=== PATIENT | female | born 1975 | race Caucasian/White ===

== ENCOUNTER 2017-02-19 23:09 | Emergency (ER) | payer BC ==
[2017-02-19 22:58] LABS: BASOPHIL# 0.1 X10e3 (0-0.3); BASOPHIL% 1.1 % (0-2.5); EOSINOPHIL# 0.3 X10e3 (0-0.7); EOSINOPHIL% 2.2 % (0.0-7.0); HEMATOCRIT 41.2 % (35.0-45.0); HEMOGLOBIN 13.7 gm/dL (12.0-16.0); LYMPHOCYTE# 4.2 X10e3 (1.0-3.5); MEAN CELL VOLUME 88.9 FL (83-96); MEAN CORPUSCULAR HEMOGLOBIN 29.6 PG (28-34); MEAN CORPUSCULAR HGB CONC 33.3 g/dL (30-36); MEAN PLATELET VOLUME 8.6 FL (6.5-11.5); MONOCYTE# 0.8 X10e3 (0-1.0); MONOCYTE% 6.4 % (3.0-12.0); NEUTROPHIL# 6.7 X10e3 (1.5-7.1); NEUTROPHIL% 55.3 % (40-75); PLATELET COUNT 284 X10e3 (140-420); RED BLOOD COUNT 4.64 X10e (3.90-5.30); RED CELL DISTRIBUTION WIDTH 13.8 % (11.0-15.5); WHITE BLOOD COUNT 12.1 X10e3 (4.0-10.5)
[2017-02-19 23:00] LABS: DIFF IND NO
[~2017-02-19 23:09] MED LIST: ACETAMINOPHEN PO; ALBUTEROL17 GM INH; ALPRAZOLAM; AMBIEN; AMBIEN10 MG PO; AMOXICILLIN PO; BACLOFEN20 M1 PO; CLIMARA1 PATCH.WK TOP; CLONIDINE PO; CVS PHARMACY; DESYREL100 MG; DESYREL100 MG PO; DURAGESIC25 MCG EXT; ESTRACE PO; ESTRACE0.5 MG; ESTRACE2 MG PO; ESTRADIOL1 MG PO; FIORICET 50-321 EACH PO; FLEXERIL; GYNODIOL2 MG PO; HYDROCODON-ACE1 EAC5 PO; IBUPROFEN; K-DUR20 ME1 PO; KEPPRA1000 MG PO; KEPPRA500 M1 PO; KEPPRA500 M2; KEPPRA500 M2 PO; KEPPRA750 MG PO; KETOPROFEN; KETOPROFEN PO; LEVAQUIN PO; LORTAB 10/500 T1 TAB; LORTAB 7.5-5001 TAB PO; LORTAB ELIXIR480 ML PO; LYRICA PO; MACROBID100 MG PO; MOTRIN400 MG PO; NICOTINE TRANSD14 MG EXT; NORCO 7.5/325 T1 TAB PO; ORUDIS75 M1 PO; PERCOCET10 PO; PERCOCET7.5 PO; PHENERGAN; PHENERGAN PO; PHENERGAN12.5 MG/0. PO; PREDNISONE PO; PREVACID PO; ROBITUSSIN-DM120 ML PO; SEROQUEL PO; TEGRETOL PO; TEGRETOL100 MG; TRAZODONE HCL100 MG PO; TRAZODONE HCL150 MG PO; VICODIN 5/500 T1 TAB; VICODIN PO; VITAMIN B-1000 MCG/1 INJ; VITAMIN D2000 UNIT PO; VITAMIN D250000 UNIT PO; VOLTAREN50 MG PO; VOLTAREN75 MG PO; XANAX0.5 M1; XANAX2 MG PO; ZOFRAN8 MG PO
[2017-02-19 23:22] LABS: ALBUMIN SERUM 4.3 g/dL (3.5-5.0); BILIRUBIN,TOTAL 0.8 mg/dL (0.2-2.0); BUN/CREATININE RATIO 7.5; CALCIUM SERUM 9.4 mg/dL (8.4-10.2); CREATININE SERUM 0.8 mg/dL (0.6-1.4); GLOM FILT RATE Estimated 91.7 mL/min (>60); POTASSIUM 3.2 mmol/L (3.5-5.1); PROTEIN TOTAL SERUM 7.3 g/dL (6.0-8.3)
== END 2017-02-20 00:02 | disposition home or self-care (01) ==
LOC: CED 23:09
PROVIDERS: Physician Assistant
DX: G40.802 Other epilepsy, not intractable, without status epilepticus (principal); F17.210 Nicotine dependence, cigarettes, uncomplicated; D64.9 Anemia, unspecified; F41.9 Anxiety disorder, unspecified; Z88.8 Allergy status to other drugs, medicaments and biological substances; Z79.899 Other long term (current) drug therapy
CPT/HCPCS: 80053; 85025; 96361; 96374; 96375; 96376; 99284; J2060; J2405

== ENCOUNTER 2017-02-20 10:43 | Emergency (ER) | payer BC ==
--- NOTE | ~2017-02-20 | CR2 ---
[facility] A Service of [facility] RADIOLOGY TEXT RESULTS PATIENT: MARU RACHEL LOCATION: [facility] : 77 UNIT #: [id number] AGE: [address]: Florentin Winters MD SEX: F ORDER DR: [id number] [facility] [address] [place], [place] [address] [id number] E MR#: [id number] #: [id number] NAME: MARU RACHEL : 1975 SEX: F STUDY DATE/TIME: 02/20/2017 10:57 UNIT: [facility] ROOM: STUDY DESCRIPTION: CR Abdomen Acute Series Attending Physician: Vinny Winters M.D. Ordering Physician: Ethan Welsh M.D. Primary Care Physician: Komal Devlin M.D. MEDICAL IMAGING REPORT This report is preliminary unless electronic signature is present EXAM Acute abdomen series 02/20/2017 INDICATION Vomiting, nausea, shortness for a couple days. COMPARISON 10/08/2016. FINDINGS A PA view of the chest and flat and upright views of the abdomen were obtained. The heart size and vascularity are normal. The lungs are clear. The bowel gas pattern is normal. There are clips in the gallbladder fossa. The bones are normal. There is no free air. IMPRESSION Normal acute abdomen series. Dictated by... Anil Marin M.D. THIS IS AN ELECTRONICALLY VERIFIED REPORT Anil Marin M.D. at 02/20/2017 1:53 PM JENNY/jordan TD: 02/20/2017 13:47 JOB #: [id number] MEDICAL IMAGING REPORT Page 1 of 1 COPY
[2017-02-20 10:52] LABS: BASOPHIL# 0.1 X10e3 (0-0.3); BASOPHIL% 0.8 % (0-2.5); EOSINOPHIL% 0.3 % (0.0-7.0); HEMATOCRIT 39.8 % (35.0-45.0); HEMOGLOBIN 13.3 gm/dL (12.0-16.0); LYMPHOCYTE# 2.6 X10e3 (1.0-3.5); LYMPHOCYTE% 19.2 % (17.0-45.0); MEAN CELL VOLUME 88.8 FL (83-96); MEAN CORPUSCULAR HEMOGLOBIN 29.8 PG (28-34); MEAN CORPUSCULAR HGB CONC 33.5 g/dL (30-36); MEAN PLATELET VOLUME 8.9 FL (6.5-11.5); MONOCYTE# 0.8 X10e3 (0-1.0); NEUTROPHIL# 9.8 X10e3 (1.5-7.1); NEUTROPHIL% 73.7 % (40-75); PLATELET COUNT 272 X10e3 (140-420); RED BLOOD COUNT 4.48 X10e (3.90-5.30); RED CELL DISTRIBUTION WIDTH 13.9 % (11.0-15.5); WHITE BLOOD COUNT 13.4 X10e3 (4.0-10.5)
[2017-02-20 10:56] LABS: DIFF IND NO
[2017-02-20 11:31] LABS: ALBUMIN SERUM 4.1 g/dL (3.5-5.0); BILIRUBIN, DIRECT 0.1 mg/dL (0.0-0.2); BILIRUBIN,INDIRECT 0.9 mg/dL (0.0-0.9); BUN/CREATININE RATIO 7.14; CALCIUM SERUM 9.3 mg/dL (8.4-10.2); CREATININE SERUM 0.7 mg/dL (0.6-1.4); GLOM FILT RATE Estimated 107.6 mL/min (>60); POTASSIUM 3.2 mmol/L (3.5-5.1); PROTEIN TOTAL SERUM 7.1 g/dL (6.0-8.3)
[2017-02-20 12:19] LABS: URINE SOURCE CLEAN CATCH
[2017-02-20 12:24] LABS: URINE APPEARANCE CLEAR; URINE BILIRUBIN NEG (NEG); URINE BLOOD TRACE (NEG); URINE COLOR DK YELLOW; URINE GLUCOSE NEG (NEG); URINE KETONE TRACE (NEG); URINE LEUKOCYTE ESTERASE TRACE (NEG); URINE NITRATE NEG (NEG); URINE PH 8.5 (5-8); URINE PROTEIN TRACE (NEG); URINE SPECIFIC GRAVITY 1.025 (1.003-1.035)
[2017-02-20 12:27] LABS: CULTURE INDICATED? YES; URINE BACTERIA AUWI 2+ (NEGATIVE); URINE SQUAMOUS EPITHELIAL CELL MOD /[HPF]
[2017-02-20 12:43] LABS: U HYALINE CASTS AUWI 0-2 /[LPF]
[2017-02-20 12:44] LABS: URINE MUCUS PRESENT
== END 2017-02-20 15:45 | disposition home or self-care (01) ==
LOC: CED 10:43
PROVIDERS: Emergency Medicine
DX: E87.6 Hypokalemia (principal); R11.10 Vomiting, unspecified; R19.7 Diarrhea, unspecified; F41.9 Anxiety disorder, unspecified; F17.210 Nicotine dependence, cigarettes, uncomplicated; Z90.49 Acquired absence of other specified parts of digestive tract; Z90.710 Acquired absence of both cervix and uterus
CPT/HCPCS: 36415; 51701; 74022; 80048; 80076; 81003; 83690; 84703; 85025; 87086; 96374; 99283; 99284; J2765

== ENCOUNTER 2017-02-20 22:39 | Emergency (ER) | payer BC | END 2017-02-21 01:18 | disposition home or self-care (01) | LOC: CED 22:39 | DX: G40.909 Epilepsy, unspecified, not intractable, without status epilepticus (principal); F41.9 Anxiety disorder, unspecified; F17.200 Nicotine dependence, unspecified, uncomplicated; F19.939 Other psychoactive substance use, unspecified with withdrawal, unspecified; Z88.5 Allergy status to narcotic agent; Z88.8 Allergy status to other drugs, medicaments and biological substances; Z79.899 Other long term (current) drug therapy; Z88.6 Allergy status to analgesic agent | CPT/HCPCS: 36415; 96361; 96374; 96375; 99284; J1953; J2060; J2405 ==

== ENCOUNTER 2017-02-22 04:48 | Emergency (ER) | payer BC ==
[2017-02-22 04:40] LABS: BASOPHIL# 0.1 X10e3 (0-0.3); EOSINOPHIL# 0.2 X10e3 (0-0.7); HEMATOCRIT 39.5 % (35.0-45.0); HEMOGLOBIN 13.1 gm/dL (12.0-16.0); LYMPHOCYTE# 2.6 X10e3 (1.0-3.5); MEAN CELL VOLUME 89.6 FL (83-96); MEAN CORPUSCULAR HEMOGLOBIN 29.7 PG (28-34); MEAN CORPUSCULAR HGB CONC 33.2 g/dL (30-36); MEAN PLATELET VOLUME 8.5 FL (6.5-11.5); MONOCYTE# 1.2 X10e3 (0-1.0); MONOCYTE% 10.2 % (3.0-12.0); NEUTROPHIL# 7.7 X10e3 (1.5-7.1); NEUTROPHIL% 64.8 % (40-75); PLATELET COUNT 233 X10e3 (140-420); RED BLOOD COUNT 4.41 X10e (3.90-5.30); WHITE BLOOD COUNT 11.8 X10e3 (4.0-10.5)
[2017-02-22 04:43] LABS: DIFF IND NO
[2017-02-22 05:02] LABS: AMPHETAMINE NEG (NEG); BARBITURATES NEG (NEG); BENZODIAZEPINES POS (NEG); COCAINE NEG (NEG); MARIJUANA NEG (NEG); OPIATES POS (NEG); TRICYCLIC ANTIDEPRESSANTS NEG (NEG); U METHADONE NEG (NEG)
[2017-02-22 05:15] LABS: ALCOHOL BLOOD <5 mg/dL (0); BLOOD UREA NITROGEN <5 mg/dL (9-23); BUN/CREATININE RATIO 7.14; CALCIUM SERUM 9.2 mg/dL (8.4-10.2); CARBON DIOXIDE 25 mmol/L (22-31); CHLORIDE 101 mmol/L (100-111); CREATININE SERUM 0.7 mg/dL (0.6-1.4); GLOM FILT RATE Estimated 107.6 mL/min (>60); GLUCOSE FASTING 106 mg/dL (70-110); POTASSIUM 3.1 mmol/L (3.5-5.1); SODIUM 135 mmol/L (135-145)
== END 2017-02-22 12:22 | disposition home or self-care (01) ==
LOC: CED 04:48
PROVIDERS: Emergency Medicine
DX: R56.9 Unspecified convulsions (principal); F41.9 Anxiety disorder, unspecified; F32.9 Major depressive disorder, single episode, unspecified; F17.200 Nicotine dependence, unspecified, uncomplicated
CPT/HCPCS: 36415; 80048; 80307; 82947; 85025; 99284; G0480

== ENCOUNTER 2017-02-23 10:39 | Emergency (ER) | payer BC ==
--- NOTE | ~2017-02-23 | CR72 ---
[facility] A Service of [facility] RADIOLOGY TEXT RESULTS PATIENT: MARU RACHEL LOCATION: [facility] : 77 UNIT #: [id number] AGE: [address]: Zackary Higgins MD SEX: F ORDER DR: [id number] [facility] [address] [place], [place] [address] [id number] E MR#: [id number] Acc #: [id number] NAME: MARU RACHEL : 1975 SEX: F STUDY DATE/TIME: 02/23/2017 10:55 UNIT: [facility] ROOM: STUDY DESCRIPTION: CR Chest Single View Portable Attending Physician: Zackary Higgins M.D. Ordering Physician: Zackary Higgins M.D. Primary Care Physician: Komal Devlin M.D. MEDICAL IMAGING REPORT This report is preliminary unless electronic signature is present EXAM Single view chest dated 02/23/2017 COMPARISON Frontal view of the chest from acute abdominal series dated 02/20/2017. HISTORY Seizures, shortness of air and altered mental status since yesterday. FINDINGS Single view of the chest was obtained. A single AP portable view of the chest shows both lungs to be clear. The heart is normal in size. The mediastinal contour is normal. No significant bone abnormalities are seen. IMPRESSION Normal portable chest. Dictated by... Oh Melgar M.D. THIS IS AN ELECTRONICALLY VERIFIED REPORT Oh Melgar M.D. at 02/24/2017 3:20 PM CPR/jw TD: 02/23/2017 13:28 JOB #: [id number] MEDICAL IMAGING REPORT Page 1 of 1 COPY
[2017-02-23 10:53] LABS: URINE SOURCE CATH
[2017-02-23 10:58] LABS: URINE APPEARANCE CLEAR; URINE BILIRUBIN NEG (NEG); URINE BLOOD TRACE (NEG); URINE COLOR YELLOW; URINE GLUCOSE NEG (NEG); URINE KETONE NEG (NEG); URINE LEUKOCYTE ESTERASE NEG (NEG); URINE NITRATE NEG (NEG); URINE PROTEIN NEG (NEG); URINE SPECIFIC GRAVITY 1.004 (1.003-1.035); URINE UROBILINOGEN 0.2 MG/DL (NEG)
[2017-02-23 11:01] LABS: U HYALINE CASTS AUWI 0-2 /[LPF]; URBCS1 AUWI 0-2 /[HPF] (0-2); URINE BACTERIA AUWI NEG (NEGATIVE); URINE SQUAMOUS EPITHELIAL CELL OCC /[HPF]; UWBCS1 AUWI 0-2 (0-5)
[2017-02-23 11:09] LABS: CULTURE INDICATED? NO
[2017-02-23 11:19] LABS: AMPHETAMINE NEG (NEG); BARBITURATES NEG (NEG); BENZODIAZEPINES NEG (NEG); COCAINE NEG (NEG); MARIJUANA NEG (NEG); OPIATES NEG (NEG); TRICYCLIC ANTIDEPRESSANTS NEG (NEG); U METHADONE NEG (NEG)
[2017-02-23 11:24] LABS: BASOPHIL# 0.1 X10e3 (0-0.3); BASOPHIL% 0.8 % (0-2.5); EOSINOPHIL# 0.1 X10e3 (0-0.7); EOSINOPHIL% 0.7 % (0.0-7.0); HEMATOCRIT 41.9 % (35.0-45.0); HEMOGLOBIN 13.9 gm/dL (12.0-16.0); LYMPHOCYTE# 2.5 X10e3 (1.0-3.5); LYMPHOCYTE% 18.4 % (17.0-45.0); MEAN CELL VOLUME 89.5 FL (83-96); MEAN CORPUSCULAR HEMOGLOBIN 29.6 PG (28-34); MEAN CORPUSCULAR HGB CONC 33.1 g/dL (30-36); MONOCYTE# 1.1 X10e3 (0-1.0); NEUTROPHIL# 9.8 X10e3 (1.5-7.1); NEUTROPHIL% 72.1 % (40-75); PLATELET COUNT 280 X10e3 (140-420); RED BLOOD COUNT 4.68 X10e (3.90-5.30); RED CELL DISTRIBUTION WIDTH 14.1 % (11.0-15.5); WHITE BLOOD COUNT 13.5 X10e3 (4.0-10.5)
[2017-02-23 11:26] LABS: DIFF IND NO
[2017-02-23 11:49] LABS: ALBUMIN SERUM 4.6 g/dL (3.5-5.0); ALKALINE PHOSPHATASE 37 U/L (32-92); ALT (SGPT) 55 U/L (10-40); AST (SGOT) 136 U/L (10-42); BILIRUBIN, DIRECT 0.2 mg/dL (0.0-0.2); BILIRUBIN,INDIRECT 0.8 mg/dL (0.0-0.9); BLOOD UREA NITROGEN 5 mg/dL (9-23); BUN/CREATININE RATIO 7.14; CALCIUM SERUM 9.6 mg/dL (8.4-10.2); CARBON DIOXIDE 26 mmol/L (22-31); CHLORIDE 100 mmol/L (100-111); CREATININE SERUM 0.7 mg/dL (0.6-1.4); GLOM FILT RATE Estimated 107.6 mL/min (>60); GLUCOSE FASTING 108 mg/dL (70-110); POTASSIUM 3.3 mmol/L (3.5-5.1); PROTEIN TOTAL SERUM 7.5 g/dL (6.0-8.3); SALICYLATE <4.0 mg/dL; SODIUM 136 mmol/L (135-145)
[2017-02-23 11:50] LABS: ACETAMINOPHEN <10 ug/mL; ALCOHOL BLOOD <5 mg/dL (0)
== END 2017-02-23 12:16 | disposition left against medical advice (07) ==
LOC: CED 10:39
PROVIDERS: Emergency Medicine
DX: G40.802 Other epilepsy, not intractable, without status epilepticus (principal); F13.20 Sedative, hypnotic or anxiolytic dependence, uncomplicated; F17.200 Nicotine dependence, unspecified, uncomplicated; Z79.899 Other long term (current) drug therapy; Z88.8 Allergy status to other drugs, medicaments and biological substances
CPT/HCPCS: 36415; 51701; 71010; 80048; 80076; 80307; 81003; 82140; 82947; 83605; 85025; 99284; G0480; J2405

== ENCOUNTER 2017-02-25 18:43 | Inpatient (IN) | payer BC ==
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
--- NOTE | ~2017-02-25 | CT71 ---
[facility] A Service of [facility] RADIOLOGY TEXT RESULTS PATIENT: MARU RACHEL LOCATION: [facility] 575-01 : [birth year] UNIT #: [id number] AGE: [address]: Eliana Graham MD SEX: F ORDER DR: [id number] [facility] [address] [place], [place] [address] [id number] E MR#: [id number] Acc #: [id number] NAME: MARU RACHEL : 1975 SEX: F STUDY DATE/TIME: 02/25/2017 20:56 UNIT: [facility] ROOM: STUDY DESCRIPTION: CT Head Wo Contrast Attending Physician: Sussy Zamora M.D. Referring Physician: Komal Devlin M.D. Ordering Physician: Sussy Zamora M.D. Primary Care Physician: Komal Devlin M.D. MEDICAL IMAGING REPORT This report is preliminary unless electronic signature is present EXAM Head CT without contrast, 02/25/2017 HISTORY Headache, fidgety and restless with body-wide pain after withdrawal from Xanax today. FINDINGS This CT exam was performed with one or more of the following radiation dose reduction techniques: Automatic exposure control, adjustment of mA and/or kV according to patient size, and iterative reconstruction. Multiple axial images were obtained from the skull base to vertex without intravenous contrast administration. Examination is nondiagnostic due to patient motion with resulting artifact. Repeat examination is strongly recommended. IMPRESSION Examination is nondiagnostic due to patient motion with resulting artifact. Repeat examination is strongly recommended. Dictated by... Rebel Sarmiento M.D. THIS IS AN ELECTRONICALLY VERIFIED REPORT Rebel Sarmiento M.D. at 02/26/2017 2:15 PM CAMERON/sowmya TD: 02/25/2017 23:18 JOB #: [id number] [facility] A Service [facility] RADIOLOGY TEXT RESULTS PATIENT: MARU RACHEL LOCATION: [facility] 575-01 : [birth year] UNIT #: [id number] AGE: [address]: Eliana Graham MD SEX: F ORDER DR: MEDICAL IMAGING REPORT Page 1 of 1 COPY
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
--- NOTE | ~2017-02-25 | CT71 ---
[facility] A Service of [facility] RADIOLOGY TEXT RESULTS PATIENT: MARU RACHEL LOCATION: [facility] 575-01 : [birth year] UNIT #: [id number] AGE: [address]: Eliana Graham MD SEX: F ORDER DR: [id number] [facility] [address] [place], [place] [address] [id number] I MR#: [id number] Acc #: [id number] NAME: MARU RACHEL : 1975 SEX: F STUDY DATE/TIME: 02/25/2017 23:18 UNIT: [facility] ROOM: [facility] STUDY DESCRIPTION: CT Head Wo Contrast Attending Physician: Nikkie Mcadams M.D. Referring Physician: Komal Devlin M.D. Ordering Physician: Sussy Zamora M.D. Primary Care Physician: Komal Devlin M.D. MEDICAL IMAGING REPORT This report is preliminary unless electronic signature is present EXAM Noncontrast CT head at 23:18. DATE 02/25/2017 HISTORY 42-year-old female with diffuse body pain, withdrawal from Xanax today. Additional history of pseudo seizures, anemia. COMPARISON Noncontrast CT head 02/25/2017 at 20:[address] exam was performed with one or more of the following radiation dose reduction techniques: Automatic exposure control, adjustment of mA and/or kV according to patient size, and iterative reconstruction. The study is degraded by patient motion, necessitating repeated attempts at imaging. No acute intracranial hemorrhage, mass lesion, mass effect, midline shift or evidence of acute or evolving infarct. Mild ethmoid sinus mucosal thickening. Mastoid air cells are clear. No displaced calvarial fractures identified. IMPRESSION 1. No acute intracranial findings. Dictated by... Gracie Garcia M.D. THIS IS AN ELECTRONICALLY VERIFIED REPORT Gracie Garcia M.D. at 02/26/2017 10:07 PM [facility] A Service of [facility] RADIOLOGY TEXT RESULTS PATIENT: MARU RACHEL LOCATION: [facility] 575-01 : [birth year] UNIT #: [id number] AGE: [address]: Eliana Graham MD SEX: F ORDER DR: CRUZ/sowmya TD: 02/26/2017 03:34 JOB #: [id number] MEDICAL IMAGING REPORT Page 1 of 1 COPY
[2017-02-25 18:16] LABS: URINE SOURCE CLEAN CATCH
[2017-02-25 18:24] LABS: URINE APPEARANCE CLOUDY; URINE BILIRUBIN NEG (NEG); URINE BLOOD NEG (NEG); URINE COLOR YELLOW; URINE GLUCOSE NEG (NEG); URINE KETONE NEG (NEG); URINE LEUKOCYTE ESTERASE TRACE (NEG); URINE NITRATE NEG (NEG); URINE PH 5.5 (5-8); URINE PROTEIN NEG (NEG); URINE SPECIFIC GRAVITY 1.005 (1.003-1.035); URINE UROBILINOGEN 0.2 MG/DL (NEG)
[2017-02-25 18:27] LABS: CULTURE INDICATED? YES; URBCS1 AUWI 0-2 /[HPF] (0-2); URINE BACTERIA AUWI 2+ (NEGATIVE); URINE SQUAMOUS EPITHELIAL CELL MOD /[HPF]
[2017-02-25 18:40] LABS: AMPHETAMINE NEG (NEG); BARBITURATES NEG (NEG); BENZODIAZEPINES NEG (NEG); COCAINE NEG (NEG); MARIJUANA NEG (NEG); OPIATES POS (NEG); TRICYCLIC ANTIDEPRESSANTS NEG (NEG); U METHADONE NEG (NEG)
[2017-02-25 18:46] LABS: BASOPHIL# 0.1 X10e3 (0-0.3); EOSINOPHIL# 0.4 X10e3 (0-0.7); EOSINOPHIL% 3.3 % (0.0-7.0); HEMATOCRIT 41.6 % (35.0-45.0); HEMOGLOBIN 13.9 gm/dL (12.0-16.0); LYMPHOCYTE# 4.3 X10e3 (1.0-3.5); LYMPHOCYTE% 40.1 % (17.0-45.0); MEAN CELL VOLUME 89.7 FL (83-96); MEAN CORPUSCULAR HEMOGLOBIN 30.1 PG (28-34); MEAN CORPUSCULAR HGB CONC 33.5 g/dL (30-36); MEAN PLATELET VOLUME 8.5 FL (6.5-11.5); MONOCYTE% 9.4 % (3.0-12.0); NEUTROPHIL% 46.2 % (40-75); PLATELET COUNT 291 X10e3 (140-420); RED BLOOD COUNT 4.64 X10e (3.90-5.30); RED CELL DISTRIBUTION WIDTH 14.2 % (11.0-15.5); WHITE BLOOD COUNT 10.8 X10e3 (4.0-10.5)
[2017-02-25 18:55] LABS: DIFF IND NO
[2017-02-25 19:29] LABS: ALBUMIN SERUM 4.5 g/dL (3.5-5.0); ALKALINE PHOSPHATASE 44 U/L (32-92); ALT (SGPT) 55 U/L (10-40); AST (SGOT) 55 U/L (10-42); BILIRUBIN, DIRECT 0.1 mg/dL (0.0-0.2); BILIRUBIN,INDIRECT 0.8 mg/dL (0.0-0.9); BILIRUBIN,TOTAL 0.9 mg/dL (0.2-2.0); BLOOD UREA NITROGEN <5 mg/dL (9-23); BUN/CREATININE RATIO 7.14; CALCIUM SERUM 9.1 mg/dL (8.4-10.2); CARBON DIOXIDE 27 mmol/L (22-31); CHLORIDE 94 mmol/L (100-111); CPK (CREATINE PHOSPHOKINASE) 4089 IU/L (26-140); CREATININE SERUM 0.7 mg/dL (0.6-1.4); GLOM FILT RATE Estimated 107.6 mL/min (>60); GLUCOSE FASTING 98 mg/dL (70-110); PROTEIN TOTAL SERUM 7.3 g/dL (6.0-8.3); SODIUM 133 mmol/L (135-145)
[2017-02-25 19:30] LABS: ALCOHOL BLOOD <5 mg/dL (0); POTASSIUM 2.5 mmol/L (3.5-5.1)
[2017-02-26 08:12] LABS: HEMATOCRIT 41.8 % (35.0-45.0); HEMOGLOBIN 13.6 gm/dL (12.0-16.0); MEAN CELL VOLUME 90.9 FL (83-96); MEAN CORPUSCULAR HEMOGLOBIN 29.5 PG (28-34); MEAN CORPUSCULAR HGB CONC 32.5 g/dL (30-36); MEAN PLATELET VOLUME 8.3 FL (6.5-11.5); RED BLOOD COUNT 4.61 X10e (3.90-5.30); WHITE BLOOD COUNT 6.5 X10e3 (4.0-10.5)
[2017-02-26 08:41] LABS: CALCIUM SERUM 8.9 mg/dL (8.4-10.2); CARBON DIOXIDE 26 mmol/L (22-31); CHLORIDE 104 mmol/L (100-111); CPK (CREATINE PHOSPHOKINASE) 2010 IU/L (26-140); CREATININE SERUM 0.8 mg/dL (0.6-1.4); GLOM FILT RATE Estimated 91.7 mL/min (>60); GLUCOSE FASTING 104 mg/dL (70-110); MAGNESIUM 1.8 mg/dL (1.6-3.0); POTASSIUM 3.1 mmol/L (3.5-5.1); SODIUM 138 mmol/L (135-145)
[2017-02-26 08:42] LABS: BLOOD UREA NITROGEN <5 mg/dL (9-23); BUN/CREATININE RATIO 6.25
[2017-02-26] MEDS ORDERED: BENTYL20 MG PO (11:40)
[2017-02-26] MEDS ORDERED: REGLAN10 MG PO (11:41)
[2017-02-26] MEDS ORDERED: VITAMIN D3 PO (11:42)
[2017-02-26] MEDS ORDERED: XANAX2 MG PO (11:43)
[2017-02-26] MEDS ORDERED: AMBIEN10 MG PO (11:44)
[2017-02-26] MEDS ORDERED: ZANAFLEX4 M1 PO (11:44)
[2017-02-27] MEDS ORDERED: NEURONTIN300 MG PO (14:03)
[2017-02-27] MEDS ORDERED: HYDRALAZINE HCL25 MG PO (14:03)
[2017-02-27] MEDS ORDERED: METOPROLOL TAR25 MG PO (14:05)
[2017-02-27] MEDS ORDERED: NICOTINE PATCH TD (14:08)
== END 2017-02-27 16:01 | disposition home or self-care (01) | DRG 918 ==
LOC: CED 18:43 → CEDOF 02-26 00:15 → C5C 02-26 02:26
PROVIDERS: Emergency Medicine; Internal Medicine
DX: T42.4X1A Poisoning by benzodiazepines, accidental (unintentional), initial encounter (principal); R56.9 Unspecified convulsions; M62.82 Rhabdomyolysis; F33.2 Major depressive disorder, recurrent severe without psychotic features; F13.230 Sedative, hypnotic or anxiolytic dependence with withdrawal, uncomplicated; I16.9 Hypertensive crisis, unspecified; Y92.009 Unspecified place in unspecified non-institutional (private) residence as the place of occurrence of the external cause; F41.9 Anxiety disorder, unspecified; E87.6 Hypokalemia; G89.29 Other chronic pain; M54.9 Dorsalgia, unspecified; E53.8 Deficiency of other specified B group vitamins; Z90.49 Acquired absence of other specified parts of digestive tract; Z88.6 Allergy status to analgesic agent; Z88.5 Allergy status to narcotic agent; Z88.8 Allergy status to other drugs, medicaments and biological substances
CPT/HCPCS: 70450; 80048; 80076; 80307; 81003; 82274; 82550; 83735; 85025; 85027; 87086; 99285; G0480; J1200; J1630; J2060; J2405

== ENCOUNTER 2017-02-28 16:07 | Emergency (ER) | payer BC ==
[~2017-02-28 16:07] MED LIST changes: +BENTYL20 MG PO; +HYDRALAZINE HCL25 MG PO; +METOPROLOL TAR25 MG PO; +NEURONTIN300 MG PO; +NICOTINE PATCH TD; +REGLAN10 MG PO; +VITAMIN D3 PO; +ZANAFLEX4 M1 PO
[2017-02-28 16:18] LABS: BASOPHIL# 0.1 X10e3 (0-0.3); BASOPHIL% 1.1 % (0-2.5); EOSINOPHIL# 0.2 X10e3 (0-0.7); EOSINOPHIL% 2.3 % (0.0-7.0); HEMATOCRIT 42.2 % (35.0-45.0); LYMPHOCYTE# 2.6 X10e3 (1.0-3.5); LYMPHOCYTE% 26.3 % (17.0-45.0); MEAN CELL VOLUME 91.3 FL (83-96); MEAN CORPUSCULAR HEMOGLOBIN 30.1 PG (28-34); MEAN PLATELET VOLUME 8.7 FL (6.5-11.5); MONOCYTE# 0.8 X10e3 (0-1.0); MONOCYTE% 7.9 % (3.0-12.0); NEUTROPHIL# 6.1 X10e3 (1.5-7.1); NEUTROPHIL% 62.4 % (40-75); PLATELET COUNT 320 X10e3 (140-420); RED BLOOD COUNT 4.63 X10e (3.90-5.30); RED CELL DISTRIBUTION WIDTH 14.7 % (11.0-15.5); WHITE BLOOD COUNT 9.7 X10e3 (4.0-10.5)
[2017-02-28 16:19] LABS: DIFF IND NO
[2017-02-28 16:44] LABS: ALBUMIN SERUM 4.3 g/dL (3.5-5.0); ALCOHOL BLOOD <5 mg/dL (0); ALKALINE PHOSPHATASE 40 U/L (32-92); ALT (SGPT) 28 U/L (10-40); AST (SGOT) 15 U/L (10-42); BILIRUBIN, DIRECT 0.1 mg/dL (0.0-0.2); BILIRUBIN,INDIRECT 0.8 mg/dL (0.0-0.9); BILIRUBIN,TOTAL 0.9 mg/dL (0.2-2.0); BLOOD UREA NITROGEN 6 mg/dL (9-23); BUN/CREATININE RATIO 8.57; CALCIUM SERUM 9.4 mg/dL (8.4-10.2); CARBON DIOXIDE 24 mmol/L (22-31); CHLORIDE 103 mmol/L (100-111); CPK (CREATINE PHOSPHOKINASE) 252 IU/L (26-140); CREATININE SERUM 0.7 mg/dL (0.6-1.4); GLOM FILT RATE Estimated 107.6 mL/min (>60); GLUCOSE FASTING 95 mg/dL (70-110); POTASSIUM 3.2 mmol/L (3.5-5.1); PROTEIN TOTAL SERUM 7.2 g/dL (6.0-8.3); SODIUM 136 mmol/L (135-145)
[2017-02-28 17:35] LABS: URINE SOURCE CLEAN CATCH
[2017-02-28 17:43] LABS: URINE APPEARANCE CLEAR; URINE BILIRUBIN NEG (NEG); URINE BLOOD NEG (NEG); URINE COLOR YELLOW; URINE GLUCOSE NEG (NEG); URINE KETONE NEG (NEG); URINE LEUKOCYTE ESTERASE NEG (NEG); URINE NITRATE NEG (NEG); URINE PH 5.5 (5-8); URINE PROTEIN NEG (NEG); URINE SPECIFIC GRAVITY 1.006 (1.003-1.035); URINE UROBILINOGEN 0.2 MG/DL (NEG)
[2017-02-28 17:45] LABS: CULTURE INDICATED? NO
[2017-02-28 18:07] LABS: AMPHETAMINE NEG (NEG); BARBITURATES NEG (NEG); BENZODIAZEPINES POS (NEG); COCAINE NEG (NEG); MARIJUANA NEG (NEG); OPIATES NEG (NEG); TRICYCLIC ANTIDEPRESSANTS NEG (NEG); U METHADONE NEG (NEG)
== END 2017-02-28 18:44 | disposition home or self-care (01) ==
LOC: CED 16:07
PROVIDERS: Student in an Organized Health Care Education/Training Program
DX: F41.9 Anxiety disorder, unspecified (principal); F17.200 Nicotine dependence, unspecified, uncomplicated; F32.9 Major depressive disorder, single episode, unspecified; Z90.49 Acquired absence of other specified parts of digestive tract; Z88.5 Allergy status to narcotic agent; Z88.8 Allergy status to other drugs, medicaments and biological substances
CPT/HCPCS: 51701; 80048; 80076; 80307; 81003; 82140; 82550; 85025; 99283; G0480

== ENCOUNTER → 2017-02-28 20:24 | Emergency (ER) | payer BC ==
[~2017-02-28 20:24] MED LIST changes: +APRESOLINE PO; +ESTRACE2 M1 PO; +FOLIC ACID1 MG PO; +VITAMIN B12; +ZOFRAN ODT4 M1 PO; +ZOLOFT50 MG PO
== END | disposition left against medical advice (07) ==
LOC: CED 20:24
DX: G40.802 Other epilepsy, not intractable, without status epilepticus (principal); F32.9 Major depressive disorder, single episode, unspecified; F41.9 Anxiety disorder, unspecified; F17.210 Nicotine dependence, cigarettes, uncomplicated; Z88.5 Allergy status to narcotic agent; Z88.8 Allergy status to other drugs, medicaments and biological substances; Z79.899 Other long term (current) drug therapy
CPT/HCPCS: 99284

== ENCOUNTER 2017-04-08 01:18 | Emergency (ER) | payer BC ==
[~2017-04-08 01:18] MED LIST changes: -APRESOLINE PO; -ESTRACE2 M1 PO; -FOLIC ACID1 MG PO; -VITAMIN B12; -ZOFRAN ODT4 M1 PO; -ZOLOFT50 MG PO
== END 2017-04-08 02:30 | disposition left against medical advice (07) ==
LOC: CED 01:18
DX: Z53.21 Procedure and treatment not carried out due to patient leaving prior to being seen by health care provider (principal)

== ENCOUNTER 2017-04-30 15:24 | Observation (INO) | payer BC ==
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
--- NOTE | ~2017-04-30 | EKG ---
PATIENT: MARU RACHEL UNIT #: [id number] Ventricular Rate: 72 BPM Atrial Rate: 72 BPM P-R Interval: 214 ms QRS Duration: 94 ms Q-T Interval: 406 ms QTC Calculation(Bezet): 444 ms P [place]: 59 degrees Calculated R [place]: -3 degrees Calculated T [place]: 26 degrees Diagnosis Line: Sinus rhythm with 1st degree A-V block Diagnosis Line: Cannot rule out Inferior infarct , age Diagnosis Line: undetermined Diagnosis Line: Abnormal ECG Diagnosis Line: When compared with ECG of 24-JUL-2015 16:54, Diagnosis Line: Minimal criteria for Inferior infarct are now Diagnosis Line: Present Diagnosis Line: Confirmed by PJ ZAVALA MD ([id number]) on Diagnosis Line: 05/02/2017 7:56:41 AM INTERPRETING MD: SALLY GUPTA
--- NOTE | ~2017-04-30 | CT71 ---
[facility] A Service of [facility] RADIOLOGY TEXT RESULTS PATIENT: MARU RACHEL LOCATION: [facility] : [birth year] UNIT #: [id number] AGE: [address]: Eliana Graham MD SEX: F ORDER DR: [id number] [facility] [address]. [place], [place] [address] [id number] I MR#: [id number] Acc #: [id number] NAME: MARU RACHEL : 1975 SEX: F STUDY DATE/TIME: 04/30/2017 17:02 UNIT: [address] ROOM: [address] [place] [address] DESCRIPTION: CT Head Wo Contrast Attending Physician: Tonya Fuller M.D. Ordering Physician: Micky Khan D.O. Primary Care Physician: Nakia Iniguez MEDICAL IMAGING REPORT This report is preliminary unless electronic signature is present EXAM CT head without contrast dated 04/30/[address] head without contrast dated 02/25/2017 HISTORY Altered mental status, disorientation today. Lethargic. TECHNIQUE Axial noncontrast images were obtained from the skull base to the vertex. This CT exam was performed with one or more of the following radiation dose reduction techniques: automatic exposure control, adjustment of mA and/or kV according to patient size, and iterative reconstruction. FINDINGS Ventricular size and configuration are normal. There is no evidence of acute infarct or hemorrhage. There are no extraaxial fluid collections. No mass lesion or mass effect is seen. There are no skull fractures. Mild paranasal mucosal thickening is noted with no air fluid levels to suggest acute sinusitis. Mastoid air cells are well-aerated. Orbits of the ocular structures are unremarkable. IMPRESSION 1. No demonstrable acute intracranial abnormality. 2. Paranasal sinus mucosal thickening is seen. Dictated by... Oh Melgar M.D. THIS IS AN ELECTRONICALLY VERIFIED REPORT [facility] A Service [facility] RADIOLOGY TEXT RESULTS PATIENT: MARU RACHEL LOCATION: [facility] : [birth year] UNIT #: [id number] AGE: [address]: Eliana Graham MD SEX: F ORDER DR: Oh Melgar M.D. at 05/01/2017 3:38 PM CPR/to TD: 04/30/2017 22:11 JOB #: [id number] MEDICAL IMAGING REPORT Page 1 of 1 COPY
--- NOTE | ~2017-04-30 | CR72 ---
[facility] A Service of [facility] RADIOLOGY TEXT RESULTS PATIENT: MARU RACHEL LOCATION: [facility] 301- : [birth year] UNIT #: [id number] AGE: [address]: Tonya Fuller MD SEX: F ORDER DR: [id number] [facility] [address] [place], [place] [address] [id number] I MR#: [id number] Acc #: [id number] NAME: MARU RACHEL : 1975 SEX: F STUDY DATE/TIME: 04/30/2017 16:11 UNIT: [address] ROOM: [facility] STUDY DESCRIPTION: CR Chest Single View Portable Attending Physician: Tonya Fuller M.D. Ordering Physician: Micky Khan D.O. Primary Care Physician: Nakia Iniguez MEDICAL IMAGING REPORT This report is preliminary unless electronic signature is present EXAM Portable chest HISTORY Shortness of breath, worse with activity. Acute onset of mental status change with suspicion of overdose. TECHNIQUE Single view of the chest was obtained and compared with 02/23/2017. FINDINGS A single AP portable view of the chest shows both lungs to be clear. The heart is normal in size. The mediastinal contour is normal. No significant bone abnormalities are seen. IMPRESSION Normal portable chest. Dictated by... Shivam Velez M.D. THIS IS AN ELECTRONICALLY VERIFIED REPORT Shivam Velez M.D. at 05/01/2017 6:47 AM RLF/sowmya TD: 04/30/2017 21:17 JOB #: [id number] MEDICAL IMAGING REPORT Page 1 of 1 COPY
[2017-04-30 16:37] LABS: BASOPHIL# 0.1 X10e3 (0-0.3); BASOPHIL% 0.4 % (0-2.5); EOSINOPHIL# 0.2 X10e3 (0-0.7); EOSINOPHIL% 1.3 % (0.0-7.0); HEMATOCRIT 42.3 % (35.0-45.0); HEMOGLOBIN 13.7 gm/dL (12.0-16.0); LYMPHOCYTE# 1.7 X10e3 (1.0-3.5); LYMPHOCYTE% 9.6 % (17.0-45.0); MEAN CELL VOLUME 93.6 FL (83-96); MEAN CORPUSCULAR HEMOGLOBIN 30.3 PG (28-34); MEAN CORPUSCULAR HGB CONC 32.4 g/dL (30-36); MEAN PLATELET VOLUME 8.8 FL (6.5-11.5); MONOCYTE# 0.9 X10e3 (0-1.0); MONOCYTE% 5.1 % (3.0-12.0); NEUTROPHIL# 14.7 X10e3 (1.5-7.1); NEUTROPHIL% 83.6 % (40-75); PLATELET COUNT 223 X10e3 (140-420); RED BLOOD COUNT 4.52 X10e (3.90-5.30); RED CELL DISTRIBUTION WIDTH 14.1 % (11.0-15.5); WHITE BLOOD COUNT 17.6 X10e3 (4.0-10.5)
[2017-04-30 16:39] LABS: DIFF IND YES
[2017-04-30 16:44] LABS: PARTIAL THROMBOPLASTIN TIME 24.7 SECONDS (23.5-31.3); PROTHROMBIN TIME (PATIENT) 10.4 SECONDS (10.0-11.7)
[2017-04-30 16:47] LABS: POC - CKMB 4.3 ng/mL (0.0-7.9); POC - TROPONIN <0.05 ng/mL (<=0.05)
[2017-04-30 16:49] LABS: PLATELET ESTIMATE NORMAL (NORMAL)
[2017-04-30 16:53] LABS: ALBUMIN SERUM 4.3 g/dL (3.5-5.0); ALKALINE PHOSPHATASE 47 U/L (32-92); ALT (SGPT) 39 U/L (10-40); AST (SGOT) 37 U/L (10-42); BILIRUBIN, DIRECT 0.1 mg/dL (0.0-0.2); BILIRUBIN,INDIRECT 0.4 mg/dL (0.0-0.9); BILIRUBIN,TOTAL 0.5 mg/dL (0.2-2.0); BLOOD UREA NITROGEN 9 mg/dL (9-23); CALCIUM SERUM 9.1 mg/dL (8.4-10.2); CARBON DIOXIDE 29 mmol/L (22-31); CHLORIDE 103 mmol/L (100-111); CREATININE SERUM 0.9 mg/dL (0.6-1.4); GLOM FILT RATE Estimated 79.5 mL/min (>60); POTASSIUM 3.2 mmol/L (3.5-5.1); PROTEIN TOTAL SERUM 7.4 g/dL (6.0-8.3); SALICYLATE <4.0 mg/dL; SODIUM 139 mmol/L (135-145)
[2017-04-30 16:55] LABS: ACETAMINOPHEN <10 ug/mL; ALCOHOL BLOOD <5 mg/dL (0); GLUCOSE FASTING 49 mg/dL (70-110)
[2017-04-30 17:02] LABS: URINE SOURCE CLEAN CATCH
[2017-04-30 17:06] LABS: URINE APPEARANCE CLEAR; URINE BILIRUBIN NEG (NEG); URINE BLOOD NEG (NEG); URINE COLOR YELLOW; URINE GLUCOSE 250 MG/DL (NEG); URINE KETONE NEG (NEG); URINE LEUKOCYTE ESTERASE 1+ (NEG); URINE NITRATE NEG (NEG); URINE PH 5.5 (5-8); URINE PROTEIN 1+ (NEG); URINE SPECIFIC GRAVITY 1.027 (1.003-1.035)
[2017-04-30 17:08] LABS: CULTURE INDICATED? YES; URINE BACTERIA AUWI 1+ (NEGATIVE); URINE SQUAMOUS EPITHELIAL CELL MOD /[HPF]
[2017-04-30 17:16] LABS: AMPHETAMINE POS (NEG); BARBITURATES NEG (NEG); BENZODIAZEPINES POS (NEG); COCAINE NEG (NEG); MARIJUANA NEG (NEG); OPIATES POS (NEG); TRICYCLIC ANTIDEPRESSANTS NEG (NEG); U METHADONE NEG (NEG)
[2017-04-30 17:42] LABS: ARTERIAL BLD GAS O2 SATURATION 91.4 % (90.0-100.0); ARTERIAL BLOOD GAS CARBOXY HB 6.3 %sat (0.0-9.0); ARTERIAL BLOOD GAS HCO3 29.3 mmol/L; ARTERIAL BLOOD GAS MET HB 0.6 %sat (0.0-2.0); ARTERIAL BLOOD GAS PO2 95.5 mmHg (80.0-100); ARTERIAL BLOOD GAS pH 7.365 (7.350-7.450)
[2017-04-30 17:43] LABS: ARTERIAL BLOOD GAS ALLEN TEST N; ARTERIAL BLOOD GAS ART SITE LEFT RADIAL; ARTERIAL BLOOD GAS PCO2 51.3 mmHg (35.0-45.0); ARTERIAL DRAW? YES
[2017-04-30 21:41] LABS: FOLATE (FOLIC ACID) 8.4 ng/mL (>5.8)
[2017-04-30] MEDS ORDERED: APRESOLINE PO (21:58)
[2017-04-30] MEDS ORDERED: BENTYL20 MG PO (21:59)
[2017-04-30] MEDS ORDERED: ZOFRAN ODT4 M1 PO (22:00)
[2017-04-30] MEDS ORDERED: AMBIEN10 MG PO (22:16)
[2017-04-30] MEDS ORDERED: TRAZODONE HCL100 MG PO (22:16)
[2017-04-30] MEDS ORDERED: ESTRACE2 M1 PO (22:17)
[2017-04-30 22:19] LABS: %MB 0.7 % (0.0-4.0); MB 6.6 ng/ml
[2017-04-30] MEDS ORDERED: ZOLOFT50 MG PO (22:23)
[2017-04-30] MEDS ORDERED: VITAMIN B12 (22:23)
[2017-04-30] MEDS ORDERED: FOLIC ACID1 MG PO (22:24)
[2017-05-01 08:57] LABS: %MB 0.6 % (0.0-4.0); MB 4.4 ng/ml
== END 2017-05-01 11:04 | disposition home or self-care (01) | DRG 948 ==
LOC: CED 15:24 → CEDOF 18:40 → C3A PCU 18:40 → CED 19:07 → C3A PCU 19:07 → CEDOF 19:07 → C3A PCU 20:40 → CEDOF 20:40 → C3A PCU 20:40
PROVIDERS: Emergency Medicine; Family Medicine
DX: R41.82 Altered mental status, unspecified (principal); R56.9 Unspecified convulsions; F15.10 Other stimulant abuse, uncomplicated; F11.10 Opioid abuse, uncomplicated; F13.10 Sedative, hypnotic or anxiolytic abuse, uncomplicated; E16.2 Hypoglycemia, unspecified; N39.0 Urinary tract infection, site not specified; D72.829 Elevated white blood cell count, unspecified; E53.8 Deficiency of other specified B group vitamins; M54.9 Dorsalgia, unspecified; G89.29 Other chronic pain; F17.210 Nicotine dependence, cigarettes, uncomplicated
CPT/HCPCS: 36415; 36600; 70450; 71010; 80048; 80076; 80307; 81003; 82550; 82553; 82607; 82746; 82803; 82947; 83036; 83735; 84443; 84484; 85025; 85610; 85730; 87040; 87086; 93005; 96374; 96375; 99285; G0378; G0480; J0696; J2405; J3475